=== PATIENT | female | born 1945 | race Caucasian/White ===

== ENCOUNTER 2017-03-22 10:33 | Emergency (ER) | payer OTHER ==
[2017-03-22 11:41] LABS: BASOPHILS % (AUTO) 0.7 % (0.0-5.0); EOSINOPHILS % (AUTO) 0.7 % (0.0-8.0); HEMATOCRIT 24.9 % (36-48); LYMPHOCYTES % (AUTO) 21.2 % (21.0-51.0); MEAN CORPUSCULAR HEMOGLOBIN 28.6 pg (27.0-33.0); MEAN CORPUSCULAR HGB CONC 33.7 g/dL (32.0-36.0); MONOCYTES % (AUTO) 9.1 % (3.0-13.0); NEUTROPHILS % (AUTO) 68.3 % (40.0-77.0); PLATELET COUNT (AUTO) 304 K/uL (130-400); RED BLOOD CELL COUNT(AUTO) 2.93 MIL/uL (4.00-5.50); WHITE BLOOD COUNT (AUTO) 6.5 K/uL (4.8-10.8)
[2017-03-22 11:51] LABS: CREATININE 1.3 mg/dL (0.5-1.5)
[2017-03-22 11:55] LABS: ALBUMIN 3.6 g/dL (3.5-5.0); BILIRUBIN,TOTAL 0.2 mg/dL (0.2-1.0); TOTAL PROTEIN, SERUM 7.3 g/dL (6.0-8.3)
[2017-03-22 12:27] LABS: INR 0.95 (0.85-1.15); PARTIAL THROMBOPLASTIN TIME 24.8 SEC (26.3-35.5)
[2017-05-19] MEDS ORDERED: PRED5SOL PO (14:04)
[2017-05-19] MEDS ORDERED: IBUP1TAB13 PO (14:04)
[2017-05-19] MEDS ORDERED: PHEN100S IV (14:04)
[2017-05-19] MEDS ORDERED: FLUT1AER5 IH (14:04)
[2017-05-19] MEDS ORDERED: THIA100V3 IJ (14:04)
[2017-05-19] MEDS ORDERED: ACET-2743 PO (14:04)
[2017-05-19] MEDS ORDERED: [UNRECOGNIZED DRUG - CODE] IM (14:04)
[2017-05-19] MEDS ORDERED: FLUT100D3 IH (14:04)
[2017-05-19] MEDS ORDERED: ALPR0.25 PO (14:04)
[2017-05-19] MEDS ORDERED: CHOL500050 PO (14:04)
[2017-05-19] MEDS ORDERED: DIPH25CA85 PO (14:04)
== END 2017-03-22 15:40 | disposition home or self-care (01) ==
LOC: EDH 10:33
DX: K62.5 Hemorrhage of anus and rectum (principal); D64.9 Anemia, unspecified; J45.909 Unspecified asthma, uncomplicated; N18.9 Chronic kidney disease, unspecified; G45.9 Transient cerebral ischemic attack, unspecified; Z88.1 Allergy status to other antibiotic agents; Z88.2 Allergy status to sulfonamides; Z79.899 Other long term (current) drug therapy
CPT/HCPCS: 36415; 80053; 82270; 85025; 85610; 85730; 86850; 86900; 86901

== ENCOUNTER 2017-05-20 07:20 | Day surgery (SDC) | payer OTHER ==
[~2017-05-20] VITALS: Ht 165.1 cm; Wt 82.2 kg
[~2017-05-20 07:20] MED LIST: ACET-2743 PO; ALPR0.25 PO; CHOL500050 PO; DIPH25CA85 PO; FLUT100D3 IH; FLUT1AER5 IH; IBUP1TAB13 PO; PHEN100S IV; PRED5SOL PO; SODIUM CHLORIDE 0.9% 1000ML 1,000 ML IV ONE; THIA100V3 IJ; [UNRECOGNIZED DRUG - CODE] IM
[2017-05-20 07:29] VITALS: BP 133/64
[2017-05-20] MEDS ORDERED: TYLENOL PO (08:08)
[2017-05-20] MEDS ORDERED: PHENYLEPHRINE PO (08:10)
[2017-05-20] MEDS ORDERED: ALBUTEROL NEB IH (08:12)
[2017-05-20] MEDS ORDERED: LIDOCAINE VISCOUS TP (08:13)
[2017-05-20] MEDS ORDERED: PROPOFOL 10 MG/ML 20ML VIAL IV ONE (09:45)
[2017-05-20 09:52] VITALS: BP 92/30
== END 2017-05-20 10:20 ==
LOC: DAH 07:20
PROVIDERS: ATTEND Internal Medicine Gastroenterology
DX: D12.5 Benign neoplasm of sigmoid colon (principal); D50.0 Iron deficiency anemia secondary to blood loss (chronic); Z79.899 Other long term (current) drug therapy; N18.9 Chronic kidney disease, unspecified; J45.909 Unspecified asthma, uncomplicated; Z86.73 Personal history of transient ischemic attack (TIA), and cerebral infarction without residual deficits; Z88.2 Allergy status to sulfonamides; Z88.1 Allergy status to other antibiotic agents; Z88.8 Allergy status to other drugs, medicaments and biological substances
CPT/HCPCS: 45380; 88305; A4606; J2704; J7030

== ENCOUNTER → 2017-11-27 | Outpatient (CLI) | payer OTHER ==
[~2017-11-27] MED LIST changes: -ACET-2743 PO; +ALBUTEROL NEB IH; +LIDOCAINE VISCOUS TP; -PHEN100S IV; +PHENYLEPHRINE PO; -SODIUM CHLORIDE 0.9% 1000ML 1,000 ML IV ONE; +TYLENOL PO
== END | disposition home or self-care (01) ==
LOC: OIH 08:16
PROVIDERS: ATTEND Internal Medicine Gastroenterology
DX: R10.30 Lower abdominal pain, unspecified (principal); K63.89 Other specified diseases of intestine
CPT/HCPCS: 74176